=== PATIENT | male | born 1975 | race Caucasian/White ===

== ENCOUNTER 2023-09-28 15:17 | Emergency (ER) | payer BC, OTHER, SELFPAY ==
[2023-09-28 15:39] VITALS: BP 141/86; PULSE 67; RESP 16; TEMP 36.5; O2SAT 98
--- NOTE | 2023-09-28 16:26 | ED.GENADULT ---
HPI - General Adult General Chief complaint: Urogenital-Male Stated complaint: uti symptoms Time Seen by Provider: 09/28/23 15:46 Source: patient and RN notes reviewed Mode of arrival: ambulatory Limitations: no limitations History of Present Illness HPI narrative: Patient presents today complaining of 5 day history of a lower abdominal cramping, urinary frequency, bilateral flank pain, decreased appetite, pain when he starts and stops his urine stream. He also reported, pins and needles in his penis to the nurse today. Patient states he injured his back a few weeks ago(reports he has an old injury) and treated it with some Robaxin he had at home. Thought that this pain was just lingering, but reports it started to radiate to his lower abdomen. Reports that he is having trouble getting comfortable when he lays down at night as well. Denies fever, nausea or vomiting. Related Data Home Medications Medication Instructions Recorded Confirmed aspirin 81 mg tablet,delayed 81 mg PO DAILY 09/28/23 09/28/23 release celecoxib 200 mg capsule 200 mg PO DAILY 09/28/23 09/28/23 famotidine 20 mg tablet 20 mg PO DAILY 09/28/23 09/28/23 magnesium oxide 400 mg (241.3 mg 400 mg PO AC 09/28/23 09/28/23 magnesium) tablet metoprolol succinate 25 mg 25 mg PO AC 09/28/23 09/28/23 tablet,extended release 24 hr pantoprazole 20 mg tablet,delayed 20 mg PO AC 09/28/23 09/28/23 release Allergies Allergy/AdvReac Type Severity Reaction Status Date / Time azithromycin AdvReac Diarrhea Verified 09/28/23 15:49 Review of Systems Review of Systems: CONSTITUTIONAL: Denies body aches, fever, chills, or sweats. EYES: Denies visual changes, redness, or discharge. ENT: Denies rhinorrhea, congestion, sore throat, or otalgia. CARDIOVASCULAR: Denies chest pain, palpitations, or edema. RESPIRATORY: Denies cough or dyspnea. GASTROINTESTINAL: Denies nausea, vomiting, or diarrhea.+ lower abdominal pain, decreased appetite GENITOURINARY: Denies dysuria or hematuria.+ frequency, pain starting and stopping a urine stream, flank pain SKIN: Denies rash, itching, or wounds. MUSCULOSKELETAL: Denies back pain, joint pain, or myalgia. NEUROLOGIC: Denies headache, numbness, tingling, or weakness. PSYCH: Denies depression or anxiety. PMFSH Comments At time of signature, I have reviewed and agree with nursing past medical, surgical, social and family history unless otherwise noted. Please see nursing chart for further information. There is no relevant family history pertinent to the presenting complaint Exam Narrative: GENERAL: Well-appearing, well-nourished, and in no acute distress. HEAD: Normocephalic, atraumatic. EYES: EOMI. No redness or drainage. Conjunctivae normal. ENT: Mucous membranes pink and moist. NECK: Normal AROM. Supple. No lymphadenopathy. CHEST: No respiratory distress. Clear to auscultation. HEART: Regular rate and rhythm. No murmur appreciated. Normal peripheral pulses. ABDOMEN: Soft, nondistended, normal active bowel sounds. + rebound tenderness to the bilateral lower quadrants and suprapubic area. MUSCULOSKELETAL: No bony tenderness to the entire back. EXTREMITIES: Normal range of motion. No edema. SKIN: Warm, dry, no rash. Capillary refill normal. Normal skin turgor. NEURO: No focal deficits. Alert and oriented x3. Gait steady. PSYCH: Normal affect. No signs of depression or anxiety. Course Course Level of Care: Express Care Visit Vital Signs Vital signs: Vital Signs Temperature 97.7 F 09/28/23 15:39 Pulse Rate 67 09/28/23 15:39 Respiratory Rate 16 09/28/23 15:39 Blood Pressure 141/86 H 09/28/23 15:39 Pulse Oximetry 98 09/28/23 15:39 Oxygen Delivery Room Air 09/28/23 15:39 Temperature 97.7 F 09/28/23 15:39 Pulse Rate 67 09/28/23 15:39 Respiratory Rate 16 09/28/23 15:39 Blood Pressure 141/86 H 09/28/23 15:39 Pulse Oximetry 98 09/28/23 15:39 Oxygen Delivery Room Air
== END 2023-09-28 16:42 | disposition short-term general hospital (02) ==
PROVIDERS: Emergency Provider Nurse Practitioner
DX: R35.0 Frequency of micturition (principal); R10.814 Left lower quadrant abdominal tenderness; R10.823 Right lower quadrant rebound abdominal tenderness; Z79.82 Long term (current) use of aspirin; E78.00 Pure hypercholesterolemia, unspecified; I10 Essential (primary) hypertension
CPT/HCPCS: 81003; 99202; G0463

== ENCOUNTER 2023-09-28 16:55 | Emergency (ER) | payer BC, OTHER, SELFPAY ==
[2023-09-28] VITALS (9 sets, daily range): BP systolic 135–152; BP diastolic 87–97; PULSE 72–75; RESP 16–18; TEMP 36.6; O2SAT 98–100
--- NOTE | ~2023-09-28 | XR_ITS ---
EXAMINATION: XR abdomen/kub 1V DATE: 09/28/2023 17:39 INDICATION: Left flank pain. TECHNIQUE: A supine view of the abdomen on 2 radiographs was obtained. COMPARISON: CT abdomen and pelvis 09/28/2023 FINDINGS: There are no dilated loops of bowel. There is no visible urolithiasis. There are phlebolith s in left pelvis. IMPRESSION: 1. No visible urolithiasis. Reviewed, dictated and finalized at location E. TOIR SUPERVISOR IMPRESSION: 1. No visible urolithiasis.
--- NOTE | ~2023-09-28 | CT_ITS ---
EXAMINATION: CT abdomen pelvis wo con DATE: 09/28/2023 17:33 INDICATION: Left flank pain. TECHNIQUE: Computed tomography (CT) of the abdomen and pelvis was performed without intravenous contr ast. Automated exposure control and iterative reconstruction technique were employed. The dose-length product was 1364.02 mGy-cm. COMPARISON: None. FINDINGS: The visualized portions of the lung bases demonstrate mild atelectasis. No pleural effusion . The heart size is normal. No pericardial effusion. There is diffuse hepatic steatosis. The gallblad akira, spleen, pancreas, and adrenal glands are normal. There is a 2 mm stone in right kidney. There is a 2 mm stone in left kidney. There is a right inguinal hernia containing fat. The prostate is mildly enlarged. There are no dilated loops of bowel. The appendix is not visualized. There are no patholog ically enlarged lymph nodes. There is no free intraperitoneal fluid. There is mild thoracic spondylos is. There is severe lower lumbar spondylosis. IMPRESSION: 1. Small bilateral nonobstructing kidney stones. 2. Right inguinal hernia containing fat. 3. Diffuse hepatic steatosis. Reviewed, dictated and finalized at location E. S BRAKE OPERATOR
[2023-09-28 17:50] LABS: Appearance Urine Clear (Clear); Bilirubin Urine Negative (Negative); Blood Urine Negative (Negative); Color Urine Yellow (Yellow); Glucose Urine UA Negative (Negative); Ketones Urine Negative (Negative); Leukocyte Esterase Ur Negative LEU/UL (Negative); Nitrate Urine Negative (Negative); Protein Urine Negative (Negative); Specific Grav Ur 1.007 (1.001-1.035); Urobilinogen Urine 0.2 mg/dL (<2.0); pH Urine 6.5 (5.0-9.0)
[2023-09-28] MEDS: LACTATED RINGERS 1,000 ML 999 ML IV CONT (17:50)
--- NOTE | 2023-09-28 17:54 | ED.ABDPAIN ---
HPI - Abdominal Pain General Chief Complaint: Abdominal Pain Stated Complaint: abd pain, flank pain Time Seen by Provider: 09/28/23 17:09 Source: patient Mode of arrival: ambulatory Limitations: no limitations History of Present Illness HPI narrative: 48 year old male presents today with complaints of left flank pain for a couple weeks but worse over the last 5 days. Also with increased urination. Feels like he is not emptying his bladder. Denies fever, body aches but does endorse rare chills. Is having some pain to the penile region but denies drainage or risk of STI. Does have a hx of back issues taking celebrex daily. Has tried ibuprofen on top of his celebrex for the discomfort which he rates about a 2-3/10. Related Data Home Medications Medication Instructions Recorded Confirmed aspirin 81 mg tablet,delayed 81 mg PO DAILY 09/28/23 09/28/23 release celecoxib 200 mg capsule 200 mg PO DAILY 09/28/23 09/28/23 famotidine 20 mg tablet 20 mg PO DAILY 09/28/23 09/28/23 magnesium oxide 400 mg (241.3 mg 400 mg PO AC 09/28/23 09/28/23 magnesium) tablet metoprolol succinate 25 mg 25 mg PO AC 09/28/23 09/28/23 tablet,extended release 24 hr pantoprazole 20 mg tablet,delayed 20 mg PO AC 09/28/23 09/28/23 release Allergies Allergy/AdvReac Type Severity Reaction Status Date / Time azithromycin AdvReac Diarrhea Verified 09/28/23 15:49 Review of Systems Review of Systems: All systems reviewed & are unremarkable except as noted in HPI and below Exam Const: General: cooperative, healthy appearing, comfortable, no acute distress and well developed Orientation/consciousness: patient oriented x3 HENMT: Head: normal to inspection Eyes: General: appearance normal, both eyes and all related structures Resp: Effort & Inspection: normal respiratory effort and able to speak in complete sentences Auscultation: clear to auscultation bilaterally Cardio: Rate: regular rate Rhythm: regular rhythm Heart sounds: S1 normal heart sound present and S2 normal heart sound present Back/Spine/Pelvis: Back: no CVA tenderness Cervical Spine: normal cervical lordosis Thoracic/Lumbar Spine: thoracic and lumbar spine normal to inspection and paraspinal muscle tenderness on the left in the mid lumbar Skin: General skin exam: normal color Neuro: General: patient oriented x3 Course Vital Signs Vital signs: Vital Signs Temperature 97.9 F 09/28/23 16:58 Pulse Rate 75 09/28/23 16:58 Respiratory Rate 16 09/28/23 16:58 Blood Pressure 143/97 H 09/28/23 16:58 Pulse Oximetry 99 09/28/23 16:58 Oxygen Delivery Room Air 09/28/23 16:58 Temperature 97.9 F 09/28/23 16:58 Pulse Rate 75 09/28/23 18:32 Respiratory Rate 18 09/28/23 18:32 Blood Pressure 152/94 H 09/28/23 18:32 Pulse Oximetry 100 09/28/23 18:32 Oxygen Delivery Room Air 09/28/23 16:58 MDM - Abdominal Pain MDM Narrative Medical decision making narrative: 48 year old male HPI as noted. Differentials as below. Ct abdomen shows non obstructing stones, Right inguinal hernia, mildly enlarged prostate, thoracic and lumbar spondylosis. suspect pain is from either the spondylosis or from back spasms. PVR 48. Plan follow up with primary for further management. Patient aware and agrees with plan of care at this time but still is concerned due to not feeling that this pain is different. Went through imaging and labs and reviewed with patient that at this time there is no emergent or acute findings for me to treat. he has robaxin at home and pain is currently tolerable. Differential Diagnosis Differential diagnosis: Likely calculus of kidney, constipation and other (muscle strain, back pain) Lab Data 09/28/23 17:43 09/28/23 17:43 Labs: Lab Results 09/28/23 09/28/23 Range/Units 17:42 17:43 WBC 9.4 (4.5-10.0) K/mm3 RBC 5.01 (4.6-6.20) M/mm3 Hgb 15.0 (14.0-18.0) g/dL Hct 44.6 (42.0-52.0) %
[2023-09-28 17:57] LABS: Add Urine Microscopic? NO
[2023-09-28 17:58] LABS: Basophils Absolute Auto 0.1 K/mm3 (0.0-0.1); Basophils Percent Auto 0.5 % (0.2-1.2); Eosinophils Absolute Auto 0.3 K/mm3 (0-0.3); Eosinophils Percent Auto 2.8 % (0-4.4); Hematocrit 44.6 % (42.0-52.0); Immature Granulocyte Absolute 0.05 K/mm3 (0.00-0.031); Immature Granulocyte Percent A 0.5 % (0-0.5); Lymphocytes Absolute Auto 2.38 K/mm3 (0.9-3.2); Lymphocytes Percent Auto 25.4 % (18.3-44.2); Mean Corpuscular HGB Conc 33.6 g/dl (32-36); Mean Corpuscular Hemoglobin 29.9 pg (26-34); Mean Platelet Volume 9.6 fl (7.4-10.4); Monocytes Absolute Auto 0.9 K/mm3 (0.1-0.6); Monocytes Percent Auto 9.1 % (2.6-8.5); Neutrophils Absolute Auto 5.8 K/mm3 (1.3-6.7); Neutrophils Percent Auto 61.7 % (45.5-73.1); Platelet Count Result 243 k/mm3 (150-375); Red Blood Count 5.01 M/mm3 (4.6-6.20); Red Cell Distribution Width 12.7 % (11.5-14.5); White Blood Count 9.4 K/mm3 (4.5-10.0)
[2023-09-28 18:13] LABS: Alanine Aminotransferase 23 U/L (6-50); Albumin Level 4.8 g/dL (3.5-5.1); Alkaline Phosphatase 72 U/L (38-126); Anion Gap 9 mmol/L (8-16); Aspartate Amino Transferase 34 U/L (17-59); Bilirubin,Total 0.5 mg/dL (0.2-1.3); Blood Urea Nitrogen 16 mg/dL (9-20); Calcium 9.4 mg/dL (8.4-10.2); Carbon Dioxide 28 mmol/L (22-30); Chloride 103 mmol/L (98-107); Estimated CRCL calculation 110 ml/min; Estimated Glomerular Filt Rate > 60; Glucose 84 mg/dL (65-110); Potassium 4.3 mmol/L (3.4-5.0); Sodium 140 mmol/L (137-145)
== END 2023-09-28 19:54 | disposition home or self-care (01) ==
PROVIDERS: Emergency Provider Nurse Practitioner Family
DX: N20.0 Calculus of kidney (principal); M47.816 Spondylosis without myelopathy or radiculopathy, lumbar region; R35.0 Frequency of micturition; Z79.82 Long term (current) use of aspirin; Z79.899 Other long term (current) drug therapy
CPT/HCPCS: 36415; 74018; 74176; 80053; 81003; 85025; 96360; 99284; J7120

== ENCOUNTER 2023-12-28 00:23 | Day surgery (SDC) | payer BC, OTHER, SELFPAY ==
[2023-11-20 10:44] VITALS: BMI 34.4
[2023-12-19 13:37] VITALS: BMI 34.4
--- NOTE | 2023-12-26 11:50 | SUR.PREOP ---
Patient called regarding upcoming procedure. Reviewed preop instructions, new appointment times, and procedure prep.
[2023-12-28 08:57] VITALS: BP 138/89; PULSE 79; RESP 20; TEMP 35.3; O2SAT 99
[2023-12-28] MEDS: LACTATED RINGERS 1,000 ML 150 ML IV CONT (09:06)
--- NOTE | 2023-12-28 09:12 | WPDANESEPPF ---
Anes - Initial Pre Proc Eval Procedure: Operation Date: 12/28/23 10:00 Proposed Procedures p Screening Colonoscopy - Geovany Joseph MD Date/Time: 12/28/23 09:12 Surgeon: Geovany Joseph MD Pre Op Diagnosis: neoplasm screening Patient Data Age: 48 Gender: M Height: 1.78 m Weight: 109 kg Last Vital Signs Temp 95.5 F L 12/28/23 08:57 Pulse 79 12/28/23 08:57 Resp 20 12/28/23 08:57 BP 138/89 12/28/23 08:57 Pulse Ox 99 12/28/23 08:57 O2 Del Method Room Air 12/28/23 08:57 Allergies Allergy/AdvReac Type Severity Reaction Status Date / Time azithromycin AdvReac Diarrhea Verified 12/28/23 08:56 Home Medications Medication Instructions Recorded Confirmed Type aspirin 81 mg tablet,delayed 81 mg PO DAILY 09/28/23 11/20/23 History release celecoxib 200 mg capsule 100 mg PO BID 09/28/23 11/20/23 History famotidine 20 mg tablet 20 mg PO BID 09/28/23 11/20/23 History magnesium oxide 400 mg (241.3 mg 400 mg PO DAILY 09/28/23 11/20/23 History magnesium) tablet metoprolol succinate 25 mg 25 mg PO DAILY 09/28/23 11/20/23 History tablet,extended release 24 hr pantoprazole 20 mg tablet,delayed 20 mg PO DAILY 09/28/23 11/20/23 History release Patient hx anesthesia problems: none Family hx anesthesia problems: none Results Review: All pre-operative results and documents have been reviewed as part of the pre-operative evaluation. [facility] Social History Social History Smoking status: Never smoker Substance use type: does not use Living arrangements: with family Spiritual care concerns: No Anes - Eval Final PreProcedure Day of Procedure 12/28/23 09:12 Patient weight: normal Heart: regular rate and rhythm Lungs: clear to auscultation Airway: Mallampati scale class II Neurological: alert and oriented Last oral intake: >/= 8 hours ASA classification: III Emergent: no Anesthetic plan: proceed Anesthesia type and monitoring: general GIVS and standard monitoring Results Review: All pre-operative results and documents have been reviewed as part of the pre-operative evaluation. Informed Consent: The patient's anesthetic plan and its attendant risks and benefits were discussed with the patient/family/POA. Questions were solicited and answers provided to the satisfaction of the patient/family/POA.
--- NOTE | 2023-12-28 09:25 | PM.HPGS ---
History of Present Illness History of Present Illness Consent: Risks, benefits, and alternatives have been discussed and questions answered. Patient agrees to proceed with procedure. Chief complaint: neoplasm screening Narrative: Edwin Harvey is a 48 year old male here for first screening colonoscopy, also diagnosed with IBS and loose stools Review of Systems Constitutional: Constitutional: Denies headache(s) and Denies weakness Eyes: Eyes: Denies blurry vision ENT: Reports Normal hearing present, Denies headache(s) and Denies neck pain Cardiovascular: Cardiovascular: Denies chest pain and Denies dyspnea Respiratory: Respiratory: Denies dyspnea Gastrointestinal: Gastrointestinal: Reports no additional gastrointestinal complaints Genitourinary: Genitourinary: Denies dysuria Musculoskeletal: Musculoskeletal: Denies neck pain Integumentary/Breasts: Skin/Breast: Denies dry skin Neurologic: Reports Normal hearing present, Denies headache(s) and Denies weakness Psychiatric: Psychiatric: Denies anxiety Endocrine: Endocrine: Denies change in body appearance Hematologic/Lymphatic: Hematologic/Lymphatic: Denies easy bleeding Allergic/Immunologic: Allergic/Immunologic: Denies urticaria PMF Past Medical History Medical History (Updated 12/28/23 @ 09:26 by Geovany Joseph MD) Colon cancer screening IBS (irritable bowel syndrome) Social History Social History Smoking status: Never smoker Substance use type: does not use Living arrangements: with family Spiritual care concerns: No Meds Home Medications and Allergies Home Medications Medication Instructions Recorded Confirmed Type aspirin 81 mg tablet,delayed 81 mg PO DAILY 09/28/23 11/20/23 History release celecoxib 200 mg capsule 100 mg PO BID 09/28/23 11/20/23 History famotidine 20 mg tablet 20 mg PO BID 09/28/23 11/20/23 History magnesium oxide 400 mg (241.3 mg 400 mg PO DAILY 09/28/23 11/20/23 History magnesium) tablet metoprolol succinate 25 mg 25 mg PO DAILY 09/28/23 11/20/23 History tablet,extended release 24 hr pantoprazole 20 mg tablet,delayed 20 mg PO DAILY 09/28/23 11/20/23 History release Allergies Allergy/AdvReac Type Severity Reaction Status Date / Time azithromycin AdvReac Diarrhea Verified 12/28/23 08:56 Vital Signs Vital Signs - 24 hr 12/28/23 08:57 Temperature 95.5 F L Pulse Rate 79 Respiratory Rate 20 Blood Pressure 138/89 Pulse Oximetry 99 Oxygen Delivery Room Air Exam Const: General: comfortable and no acute distress HENMT: Face/Nose/Sinus: Normal nares present Eyes: General: appearance normal, both eyes and all related structures Neck: Neck: no JVD Resp: Auscultation: clear to auscultation bilaterally Cardio: Rate: regular rate Rhythm: regular rhythm GI: Inspection: non-distended GI Palp: Yes Soft to palpation Skin: General skin exam: normal color Neuro: General: gait normal Speech: normal speech Extrem: General: normal to inspection Psych: Mental Status: mental status grossly normal Assessment and Plan Assessment and plan (1) Colon cancer screening: Code(s): Z12.11 - Encounter for screening for malignant neoplasm of colon Status: Acute Assessment and Plan: colonoscopy (2) IBS (irritable bowel syndrome): Code(s): K58.9 - Irritable bowel syndrome without diarrhea Status: Acute
[2023-12-28 09:46] VITALS: BP 137/82; PULSE 71; RESP 21; O2SAT 96
[2023-12-28 09:56] VITALS: BP 122/78; PULSE 73; RESP 20; O2SAT 100
[2023-12-28 10:06] VITALS: BP 114/80; PULSE 64; RESP 22; O2SAT 97
== END 2023-12-28 10:25 | disposition home or self-care (01) ==
PROVIDERS: PCP Family Medicine; Visit Provider Internal Medicine Gastroenterology
PROC: 0DJD8ZZ Inspection of Lower Intestinal Tract, Via Natural or Artificial Opening Endoscopic (ICD-10-PCS; CPT 45378; principal; 2023-12-28 10:00)
DX: Z12.11 Encounter for screening for malignant neoplasm of colon (principal); K64.8 Other hemorrhoids; K58.9 Irritable bowel syndrome, unspecified; Z79.82 Long term (current) use of aspirin
CPT/HCPCS: 45380; 88305; J2704; J7120

== ENCOUNTER 2024-11-03 16:36 | Outpatient (CLI) | payer BC, OTHER, SELFPAY ==
--- NOTE | ~2024-11-03 | CT_ITS ---
EXAMINATION: CT sinus wo con DATE: 11/03/2024 16:50 INDICATION: Unspecified eustachian tube disorder. TECHNIQUE: Computed tomography (CT) of the paranasal sinuses was performed without intravenous contra st. Iterative reconstruction technique was employed. The dose-length product was 303.09 mGy-cm. COMPARISON: None FINDINGS: There is mild mucosal thickening in left frontal sinus and the bilateral ethmoid sinuses. T he sphenoid sinuses are clear. There is mild mucosal thickening in the maxillary sinuses. The nasal s eptum is at the midline. There is a Belle cell on the right. There is occlusion of left ostiomeatal unit at the hiatus semilunaris. There is a patent accessory left maxillary ostium. There is a right m astoid effusion. The nasopharynx is unremarkable. IMPRESSION: 1. Mild mucosal thickening in the paranasal sinuses. Reviewed, dictated and finalized at location A. ITURE UPHOLSTERER
== END 2024-11-03 16:37 | disposition home or self-care (01) ==
LOC: ANHIMG 16:38
PROVIDERS: PCP Family Medicine; Visit Provider Otolaryngology
DX: J34.89 Other specified disorders of nose and nasal sinuses (principal); H69.90 Unspecified Eustachian tube disorder, unspecified ear; H90.11 Conductive hearing loss, unilateral, right ear, with unrestricted hearing on the contralateral side; H65.91 Unspecified nonsuppurative otitis media, right ear; J32.0 Chronic maxillary sinusitis; J32.2 Chronic ethmoidal sinusitis
CPT/HCPCS: 70486

== ENCOUNTER 2024-11-03 17:12 | Emergency (ER) | payer BC, OTHER, SELFPAY ==
[2024-11-03 18:10] VITALS: BP 142/92; PULSE 64; RESP 18; TEMP 36.7
[2024-11-03 18:47] LABS: Basophils Absolute Auto 0.1 K/mm3 (0.0-0.1); Basophils Percent Auto 0.7 % (0.2-1.2); Eosinophils Absolute Auto 0.2 K/mm3 (0-0.3); Eosinophils Percent Auto 1.4 % (0-4.4); Hematocrit 44.8 % (42.0-52.0); Hemoglobin 14.9 g/dL (14.0-18.0); Immature Granulocyte Absolute 0.16 K/mm3 (0.00-0.031); Immature Granulocyte Percent A 1.2 % (0-0.5); Lymphocytes Absolute Auto 2.97 K/mm3 (0.9-3.2); Lymphocytes Percent Auto 22.5 % (18.3-44.2); Mean Corpuscular HGB Conc 33.3 g/dl (32-36); Mean Corpuscular Hemoglobin 29.9 pg (26-34); Mean Corpuscular Volume 89.8 fl (80-100); Monocytes Absolute Auto 1.3 K/mm3 (0.1-0.6); Monocytes Percent Auto 9.8 % (2.6-8.5); Neutrophils Absolute Auto 8.5 K/mm3 (1.3-6.7); Neutrophils Percent Auto 64.4 % (45.5-73.1); Platelet Count Result 289 k/mm3 (150-375); Red Blood Count 4.99 M/mm3 (4.6-6.20); Red Cell Distribution Width 12.6 % (11.5-14.5); White Blood Count 13.2 K/mm3 (4.5-10.0)
[2024-11-03 19:00] LABS: Anion Gap 7 mmol/L (4-12); Blood Urea Nitrogen 28 mg/dL (9-20); Calcium 9.9 mg/dL (8.4-10.2); Carbon Dioxide 29 mmol/L (22-30); Chloride 103 mmol/L (98-107); Estimated CRCL calculation 99 ml/min; Estimated Glomerular Filt Rate > 60; Glucose 81 mg/dL (65-110); Potassium 4.4 mmol/L (3.4-5.0); Sodium 139 mmol/L (137-145)
[2024-11-03 19:03] LABS: INR 1.1; Prothrombin Time 14.8 Seconds (11.1-14.7)
[2024-11-03 19:09] LABS: D Dimer < 0.27 ug/mL (<0.48)
[2024-11-03 19:19] VITALS: BP 142/99; PULSE 73; RESP 15; O2SAT 97
--- NOTE | 2024-11-03 19:29 | ED_ITS ---
HPI - Extremity Problem General Chief complaint: Extremity Problem,Nontraumatic Stated complaint: L LEG PAIN CONCERNED ABOUT BLOOD CLOT Time Seen by Provider: 11/03/24 18:50 History of Present Illness HPI Narrative: Patient is a 49-year-old male who presents ER with pain in left calf. Located over the lateral aspect of the proximal left calf. No swelling. No redness. Recently diagnosed with sciatica. Has been on anti-inflammatories muscle relaxers. No chest pain shortness of breath. Raise concerns for DVT for him known to be evaluated. No history DVT. Related Data Home Medications ?Medication ?Instructions ?Recorded ?Confirmed ?Last Taken ?Type aspirin 81 mg tablet,delayed 81 mg PO DAILY 09/28/23 10/20/24 12/26/23 History release celecoxib 200 mg capsule 100 mg PO BID 09/28/23 10/20/24 12/26/23 History magnesium oxide 400 mg (241.3 mg 400 mg PO DAILY 09/28/23 10/20/24 12/26/23 History magnesium) tablet metoprolol succinate 25 mg 25 mg PO DAILY 09/28/23 10/20/24 12/26/23 History tablet,extended release 24 hr fenofibrate 54 mg tablet 54 mg PO DAILY 06/17/24 10/20/24 Unknown History esomeprazole magnesium 20 mg 20 mg PO DAILY 10/20/24 10/20/24 Unknown History capsule,delayed release (Nexium) Allergies Allergy/AdvReac Type Severity Reaction Status Date / Time azithromycin AdvReac Diarrhea Verified 11/03/24 17:13 Review of Systems 2 Review of Systems: All systems reviewed & are unremarkable except as noted in HPI and below Constitutional: Constitutional: Reports no additional constitutional complaints ENT: Reports system reviewed and no additional complaints, except as documented Cardiovascular: Cardiovascular: Reports no additional cardiovascular complaints Respiratory: Respiratory: Reports no additional respiratory complaints [facility] Past Medical History Medical History Colon cancer screening IBS (irritable bowel syndrome) Social History Social History Smoking status: Never smoker Alcohol intake: never Substance use: never Substance use type: does not use Do You Feel Safe in your Home?: Yes Lack of Transportation: No Lack of Food: Never True Current Housing: I Have Housing Concerned About Future Housing: No Difficulty Paying Gas/Electric Bills: No Difficulty Paying for Meds: No Currently Unemployed: No Education: Bachelor's Degree Difficulty w/ Childcare or Family Care: No Living arrangements: with family Spiritual care concerns: No Exam 2 Narrative: GENERAL: Well-appearing, well-nourished, and in no acute distress. HEAD: Normocephalic, atraumatic. ENT: Mucous membranes moist. CHEST: Clear to auscultation. No respiratory distress. HEART: Regular rate and rhythm. Normal peripheral pulses. EXTREMITIES: Normal range of motion. No edema. Negative homans sign. SKIN: Warm, dry, no rash. NEURO: Alert and oriented x3. PSYCH: Normal mood and affect. Course Course Emergency Course: Negative Hussein sign, no leg swelling, D-dimer negative, discomfort felt to be musculoskeletal in nature and not a DVT. Vital Signs Vital signs: Vital Signs Temperature 98.0 F 11/03/24 18:10 Pulse Rate 64 11/03/24 18:10 Respiratory Rate 18 11/03/24 18:10 Blood Pressure 142/92 H 11/03/24 18:10 Oxygen Delivery Room Air 11/03/24 18:10 Temperature 98.0 F 11/03/24 18:10 Pulse Rate 73 11/03/24 19:19 Respiratory Rate 15 11/03/24 19:19 Blood Pressure 142/99 H 11/03/24 19:19 Pulse Oximetry 97 11/03/24 19:19 Oxygen Delivery Room Air 11/03/24 18:10 MDM - Extremity (Nontraumatic) Lab Data 11/03/24 18:38 11/03/24 18:38 Labs: Lab Results 11/03/24 Range/Units 18:38 WBC 13.2 H (4.5-10.0) K/mm3 RBC 4.99 (4.6-6.20) M/mm3 Hgb 14.9 (14.0-18.0) g/dL Hct 44.8 (42.0-52.0) % MCV 89.8 (80-100) fl MCH 29.9 (26-34) pg MCHC 33.3 (32-36) g/dl RDW 12.6 (11.5-14.5) % Plt Count 289 (150-375) k/mm3 MPV 9.0 (7.4-10.4) fl Immature Gran % (Auto) 1.2 H (0-0.5) % Neut % (Auto) 64.4 (45.5-73.1) % Lymph % (Auto) 22.5 (18.3-44.2) % [place] % (Auto) 9.8 H (2.6-8.5) % Eos % (Auto) 1.4 (0-4.4) % Baso % (Auto) 0.7 (0.2-1.2) % Lymph # (Auto) 2.97 (0.9-3.2) K/mm3 [place] # (Auto) 1.3 H (0.1-0.6) K/mm3 Eos # (Auto) 0.2 (0-0.3) K/mm3 Baso # (Auto) 0.1 (0.0-0.1) K/mm3 Abs Immat Gran (auto) 0.16 H (0.00-0.031) K/mm3 Absolute Neuts (auto) 8.5 H (1.3-6.7) K/mm3 Absolute Nucleated RBC 0.000 (0.0-0.012) K/mm3 Nucleated RBC % 0.0 (0.0-0.2) % PT 14.8 H (11.1-14.7) Seconds INR 1.1 APTT 27.0 (22.3-36.8) Seconds D-Dimer < 0.27 (<0.48) ug/mL Sodium 139 (137-145) mmol/L Potassium 4.4 (3.4-5.0) mmol/L Chloride 103 (98-107) mmol/L Carbon Dioxide 29 (22-30) mmol/L Anion Gap 7 (4-12) mmol/L BUN 28 H D (9-20) mg/dL Creatinine 1.00 (0.7-1.3) mg/dL Estim Creat Clear Calc 99 ml/min Estimated GFR > 60 (59 - ) Glucose 81 (65-110) mg/dL Calcium 9.9 (8.4-10.2) mg/dL Discharge Plan Discharge Clinical Impression: Calf pain Patient Disposition: Home, Self-Care Condition: Stable Instructions: Leg Cramps (ED) Additional Instructions: Return ER if you have chest pain with shortness of breath, you cannot keep down food water, he lose consciousness, have additional concerns. Patient Language: Serbian Prescriptions: No Action celecoxib 200 mg capsule 100 mg PO BID aspirin 81 mg tablet,delayed release (DR/EC) 81 mg PO DAILY magnesium oxide 400 mg (241.3 mg magnesium) tablet 400 mg PO DAILY metoprolol succinate 25 mg tablet extended release 24 hr 25 mg PO DAILY fenofibrate 54 mg tablet 54 mg PO DAILY azelastine 137 mcg (0.1 %) spray,non-aerosol 137 mcg intranasal . q.h.s. Qty: 30 3RF Rx Instructions: administer into each nostril 1 or 2 sprays q.h.s. at bedtime esomeprazole magnesium [Nexium] 20 mg capsule,delayed release(DR/EC) 20 mg PO DAILY doxycycline hyclate 100 mg tablet 100 mg PO BID Qty: 20 0RF Rx Instructions: take 1 tablet b.i.d. Follow-up/Referrals: Matti,MD Cruz [Primary Care Provider] - 1 Week
[2024-11-03 20:56] VITALS: BP 128/98; PULSE 79; RESP 19; O2SAT 100
== END 2024-11-03 20:58 | disposition home or self-care (01) ==
LOC: ANHED 20:12
PROVIDERS: Nurse Practitioner Family; Emergency Provider Emergency Medicine; PCP Family Medicine
DX: M79.662 Pain in left lower leg (principal); K58.9 Irritable bowel syndrome, unspecified; Z79.82 Long term (current) use of aspirin
CPT/HCPCS: 36415; 80048; 85025; 85380; 85610; 85730; 99283

== ENCOUNTER 2025-08-06 11:06 | Outpatient (CLI) | payer BC, OTHER, SELFPAY ==
--- NOTE | 2025-08-06 11:11 | EST_ITS ---
Patient Info Name: Edwin Harvey Age: 50 years : 1975 Gender: Male Ht: 70 in Wt: 245 lbs BSA: 2.38 m2 Exam Date: 08/06/2025 11:11 AM Patient Status: O Admit Date: 08/06/2025 Exam Type: CA stress test treadmill An exercise stress test was performed. Staff Attending Provider: Dwayne Pacheco DO Exercise Technologist: Andra Best Exercise Physician: Dwayne Pacheco DO Summary 1. 1. Negative Favian exercise stress test for ischemic ST changes by ECG criteria. 2. 2. Good functional capacity, achieving 10.9 METs of workload. 3. 3. Appropriate HR response to exercise. 4. 4. Appropriate HR recovery at 1 minute post exercise. 5. 5. No imaging with stress testing. 6. 6. Patient informed of the above results. Protocol: Favian Stress ECG Details Stage: REST Duration (min): 0 min : 59 sec Speed (mph): 0.0 Grade (%): 0 HR (bpm): 65 SBP (mmHg): 129 DBP (mmHg): 76 METS: --- Stage: REST Duration (min): 5 min : 14 sec Speed (mph): 0.0 Grade (%): 0 HR (bpm): 79 SBP (mmHg): 129 DBP (mmHg): 76 METS: --- Stage: STAGE 1 Duration (min): 1 min : 0 sec Speed (mph): 1.7 Grade (%): 10 HR (bpm): 99 SBP (mmHg): 129 DBP (mmHg): 76 METS: --- Stage: STAGE 1 Duration (min): 2 min : 0 sec Speed (mph): 1.7 Grade (%): 10 HR (bpm): 103 SBP (mmHg): 129 DBP (mmHg): 76 METS: --- Stage: STAGE 1 Duration (min): 3 min : 0 sec Speed (mph): 1.7 Grade (%): 10 HR (bpm): 103 SBP (mmHg): 163 DBP (mmHg): 67 METS: --- Stage: STAGE 2 Duration (min): 1 min : 0 sec Speed (mph): 2.5 Grade (%): 12 HR (bpm): 116 SBP (mmHg): 163 DBP (mmHg): 67 METS: --- Stage: STAGE 2 Duration (min): 2 min : 0 sec Speed (mph): 2.5 Grade (%): 12 HR (bpm): 119 SBP (mmHg): 160 DBP (mmHg): 69 METS: --- Stage: STAGE 2 Duration (min): 3 min : 0 sec Speed (mph): 2.5 Grade (%): 12 HR (bpm): 120 SBP (mmHg): 160 DBP (mmHg): 69 METS: --- Stage: STAGE 3 Duration (min): 1 min : 0 sec Speed (mph): 3.4 Grade (%): 14 HR (bpm): 129 SBP (mmHg): 173 DBP (mmHg): 73 METS: --- Stage: STAGE 3 Duration (min): 2 min : 0 sec Speed (mph): 3.4 Grade (%): 14 HR (bpm): 136 SBP (mmHg): 173 DBP (mmHg): 73 METS: --- Stage: STAGE 3 Duration (min): 3 min : 0 sec Speed (mph): 3.4 Grade (%): 14 HR (bpm): 143 SBP (mmHg): 195 DBP (mmHg): 78 METS: --- Stage: STAGE 4 Duration (min): 0 min : 25 sec Speed (mph): 4.2 Grade (%): 16 HR (bpm): 147 SBP (mmHg): 195 DBP (mmHg): 78 METS: --- Stage: RECOVERY Duration (min): 0 min : 34 sec Speed (mph): 0.0 Grade (%): 0 HR (bpm): 138 SBP (mmHg): 195 DBP (mmHg): 78 METS: --- Stage: RECOVERY Duration (min): 1 min : 34 sec Speed (mph): 0.0 Grade (%): 0 HR (bpm): 106 SBP (mmHg): 174 DBP (mmHg): 82 METS: --- Stage: RECOVERY Duration (min): 2 min : 34 sec Speed (mph): 0.0 Grade (%): 0 HR (bpm): 93 SBP (mmHg): 174 DBP (mmHg): 82 METS: --- Stage: RECOVERY Duration (min): 3 min : 34 sec Speed (mph): 0.0 Grade (%): 0 HR (bpm): 89 SBP (mmHg): 176 DBP (mmHg): 68 METS: --- Stage: RECOVERY Duration (min): 4 min : 34 sec Speed (mph): 0.0 Grade (%): 0 HR (bpm): 93 SBP (mmHg): 176 DBP (mmHg): 68 METS: --- Stage: RECOVERY Duration (min): 5 min : 34 sec Speed (mph): 0.0 Grade (%): 0 HR (bpm): 88 SBP (mmHg): 176 DBP (mmHg): 67 METS: --- Stage: RECOVERY Duration (min): 6 min : 34 sec Speed (mph): 0.0 Grade (%): 0 HR (bpm): 88 SBP (mmHg): 176 DBP (mmHg): 67 METS: --- Stage: RECOVERY Duration (min): 7 min : 34 sec Speed (mph): 0.0 Grade (%): 0 HR (bpm): 90 SBP (mmHg): 155 DBP (mmHg): 69 METS: --- Stage: RECOVERY Duration (min): 8 min : 34 sec Speed (mph): 0.0 Grade (%): 0 HR (bpm): 88 SBP (mmHg): 155 DBP (mmHg): 69 METS: --- Stage: RECOVERY Duration (min): 9 min : 34 sec Speed (mph): 0.0 Grade (%): 0 HR (bpm): 90 SBP (mmHg): 151 DBP (mmHg): 73 METS: --- Stage: RECOVERY Duration (min): 10 min : 34 sec Speed (mph): 0.0 Grade (%): 0 HR (bpm): 87 SBP (mmHg): 151 DBP (mmHg): 73 METS: --- Stage: RECOVERY Duration (min): 11 min : 34 sec Speed (mph): 0.0 Grade (%): 0 HR (bpm): 88 SBP (mmHg): 153 DBP (mmHg): 78 METS: --- Stage: RECOVERY Duration (min): 12 min : 34 sec Speed (mph): 0.0 Grade (%): 0 HR (bpm): 88 SBP (mmHg): 153 DBP (mmHg): 78 METS: --- Stage: RECOVERY Duration (min): 13 min : 34 sec Speed (mph): 0.0 Grade (%): 0 HR (bpm): 88 SBP (mmHg): 151 DBP (mmHg): 81 METS: --- Stage: RECOVERY Duration (min): 14 min : 34 sec Speed (mph): 0.0 Grade (%): 0 HR (bpm): 86 SBP (mmHg): 151 DBP (mmHg): 81 METS: --- Stage: RECOVERY Duration (min): 15 min : 34 sec Speed (mph): 0.0 Grade (%): 0 HR (bpm): 83 SBP (mmHg): 153 DBP (mmHg): 71 METS: --- Stage: RECOVERY Duration (min): 16 min : 34 sec Speed (mph): 0.0 Grade (%): 0 HR (bpm): 89 SBP (mmHg): 153 DBP (mmHg): 71 METS: --- Stage: RECOVERY Duration (min): 17 min : 34 sec Speed (mph): 0.0 Grade (%): 0 HR (bpm): 89 SBP (mmHg): 131 DBP (mmHg): 76 METS: --- Stage: RECOVERY Duration (min): 18 min : 34 sec Speed (mph): 0.0 Grade (%): 0 HR (bpm): 91 SBP (mmHg): 131 DBP (mmHg): 76 METS: --- Stage: RECOVERY Duration (min): 19 min : 34 sec Speed (mph): 0.0 Grade (%): 0 HR (bpm): 87 SBP (mmHg): 145 DBP (mmHg): 89 METS: --- Stage: RECOVERY Duration (min): 20 min : 34 sec Speed (mph): 0.0 Grade (%): 0 HR (bpm): 88 SBP (mmHg): 145 DBP (mmHg): 89 METS: --- Stage: RECOVERY Duration (min): 21 min : 34 sec Speed (mph): 0.0 Grade (%): 0 HR (bpm): 86 SBP (mmHg): 140 DBP (mmHg): 86 METS: --- Stage: RECOVERY Duration (min): 22 min : 34 sec Speed (mph): 0.0 Grade (%): 0 HR (bpm): 86 SBP (mmHg): 147 DBP (mmHg): 84 METS: --- Stage: RECOVERY Duration (min): 23 min : 34 sec Speed (mph): 0.0 Grade (%): 0 HR (bpm): 89 SBP (mmHg): 147 DBP (mmHg): 84 METS: --- Stage: RECOVERY Duration (min): 24 min : 34 sec Speed (mph): 0.0 Grade (%): 0 HR (bpm): 83 SBP (mmHg): 147 DBP (mmHg): 84 METS: --- Stage: RECOVERY Duration (min): 25 min : 34 sec Speed (mph): 0.0 Grade (%): 0 HR (bpm): 91 SBP (mmHg): 151 DBP (mmHg): 91 METS: --- Stage: RECOVERY Duration (min): 26 min : 34 sec Speed (mph): 0.0 Grade (%): 0 HR (bpm): 82 SBP (mmHg): 151 DBP (mmHg): 91 METS: --- Stage: RECOVERY Duration (min): 27 min : 14 sec Speed (mph): 0.0 Grade (%): 0 HR (bpm): 84 SBP (mmHg): 143 DBP (mmHg): 99 METS: --- Rest HR: 79 bpm Peak HR: 148 bpm Rest Sys BP: 129 mmHg Peak Sys BP: 195 mmHg Max Pred HR: 170 bpm % Max Pred HR: 87 % Target HR: 145 bpm Max RPP: 28,860 bpm*mmHg Murphy Score: 4 Termination Reason: Reached target heart rate or workload Cardiac Symptoms: Shortness of breath Max ST Seg Deviation: 1.10 mm Total Time: 9 min : 25 sec Rest Dunn BP: 76 mmHg Peak Dunn BP: 78 mmHg Angina Score: None Total METS: 10.9 Resting ECG Sinus rhythm. Stress ECG No ST changes. Arrhythmias None. Report Signatures
--- OUTSIDE RECORDS SUMMARY | 2025-08-06 11:41 | XMS_ITS | Clinical Summary ---
Author Organization [facility] Address [address] [place] [address] Care Team Providers Care Insulation Worker Apprentice Name Role Phone Sony Marcus Primary Care Provider Allergies Active Allergy Reactions Criticality Noted Date Comments Azithromycin Diarrhea,Vomiting Low 01/25/2021 Medications celecoxib (CeleBREX) 200 mg capsule daily Active metoprolol XL (TOPROL-XL) 25 mg extended release tablet daily Activ e esomeprazole DR (NexIUM) 20 mg capsule daily Active aspirin 325 mg enteric coated tablet every 6 (six) hours as needed Active multivitamin capsule Take 1 capsule by mouth daily Active omega-3 fatty acids-fish oil 300-400 mg capsule Take by mouth Active cholecalciferol (VITAMIN D-3) 5,000 unit capsule Take 5,000 Units by mouth daily Active albuterol HFA (PROVENTIL HFA,VENTOLIN HFA,PROAIR HFA) 90 mcg/actuation inhalerIndicati ons:Shortness of breath Inhale 2 puffs every 6 (six) hours as needed for wheezing Fill per patient's formulary 1 each 1 2 Active Active Problems Problem Noted Date Diagnosed Date Shortness of breath 09/18/2022 Assessment & Plan (11/07/2022 4:00 PM HAZARDOUS SUBSTANCES ENGINEER): Patient's PFT and chest x-ray were within normal limits. I have ordered a methacholine challenge. Patient was also ordered an albuterol inhaler to use on a p.r.n. basis and up to 4 times a day as needed for symptom control. Assessment & Plan (09/18/2022 4:02 PM CDT): The patient's senses dyspnea which causes him to try to take a deep breath. He has some increased dyspnea on exertion as well. I will check full PFTs and a chest x-ray and he will follow-up with me in 1 month. MARLENA (obstructive sleep apnea) 01/21/2021 Assessment & Plan (11/07/2022 4:00 PM HAZARDOUS SUBSTANCES ENGINEER): Patient will continue CPAP therapy at 10 cm water pressure. I have ordered a full set of supplies and sent office notes along with order. OPAL [place] Assessment & Plan (09/18/2022 4:02 PM CDT): The patient continues to benefit from CPAP at 10 cm water pressure. His DME supplier is [employer]. Assessment & Plan (07/13/2022 3:33 PM CDT): The patient did receive a new CPAP unit. I did ask him to call [employer] to have it programmed and to have a modem installed. He is benefiting from the CPAP unit at 10 cm water pressure. He will follow-up with me in 1 year. Assessment & Plan (2022 2:56 PM CDT): The patient will continue with CPAP therapy at 10 cm water pressure. The patient is compliant and benefitting from CPAP therapy. The patient received an order for new head gear that would fit his mask. [facility] [employer]. Assessment & Plan (01/25/2021 9:48 AM HAZARDOUS SUBSTANCES ENGINEER): The patient is currently compliant with CPAP at 10 cm water pressure and has no symptoms of daytime hypersomnia. He is in need of a new CPAP unit with heated humidifier and battery and supplies through [facility]. I will write a letter for him stating that it is my opinion that he is eligible for the upcoming appointment. He should not need the services of sleep physician over the next 6 months. He should follow-up with me in 1 year. Resolved Problems Problem Noted Date Diagnosed Date Resolved Date Hypersomnia 2022 11/07/2022 Assessment & Plan (09/18/2022 4:02 PM CDT): The patient states that his hypersomnia has improved with CPAP therapy. Assessment & Plan (07/13/2022 3:33 PM CDT): He is on no stimulants and currently does not have hypersomnia. Assessment & Plan (2022 2:54 PM CDT): The patient and I discussed lab work and medication therapy in the future. The patient was educated on the importance of sleep hygiene and a good night's sleep in order to decrease the hypersomnia during the day. The patient was reminded that wearing the CPAP machine at least 4 hours a night on 70% of the nights will help with the hypersomnia. The patient is compliant with CPAP therapy at this time. Family History Relation Name Status Comments Father Alive Mother Alive Social History Tobacco Use Types Packs/Day Years Used Date Smoking Tobacco: Never Smokeless Tobacco: Never Tobacco Cessation:Counseling Given: Not Answered AUDIT-C Answer Date Recorded Q1: How often do you have a drink containing alc ohol? Never 2022 Average Number of Drinks Not on file 022 Q3: How often do you have si x or more drinks on one occasion? Never 2022 Personal Safety Answer Date Recorded Getting School Help Needed Not on file 11/22 Sex and Gender Information Value Date Recorded Sex Assigned at Not on file Legal Sex Male 10:01 AM HAZARDOUS SUBSTANCES ENGINEER Gender Identity Not on file Sexual Orientation Not on file Obstetrics History Last Filed Vital Signs Vital Sign Reading Time Taken Comments Blood Pressure 120/68 11/07/2022 3:21 PM HAZARDOUS SUBSTANCES ENGINEER Pulse 86 11/07/2022 3:21 PM HAZARDOUS SUBSTANCES ENGINEER Temperature 36.4 C (97.6 F) 11/07/2022 3:21 PM HAZARDOUS SUBSTANCES ENGINEER Respiratory Rate 18 11/07/2022 3:21 PM HAZARDOUS SUBSTANCES ENGINEER Oxygen Saturation 96% 11/07/2022 3:21 PM HAZARDOUS SUBSTANCES ENGINEER Inhaled Oxygen Concentration - - Weight 103.4 kg (228 lb) 11/07/2022 3:21 PM HAZARDOUS SUBSTANCES ENGINEER Height 177.8 cm (5' 10) 11/07/2022 3:21 PM HAZARDOUS SUBSTANCES ENGINEER Body Mass Index 32.71 11/07/2022 3:21 PM HAZARDOUS SUBSTANCES ENGINEER Plan of Treatment Health Maintenance Due Date Last Done Comments Colon Cancer Screening-Colonoscopy 1975 Depression Screening 1975 Hepatitis C Screening 1975 Prostate Cancer Screening-PSA 1975 DTaP/Tdap/Td Vaccine (1 - Tdap) 1986 Hepatitis B Screening 1993 Regular Well Visit/Exam 18-64 1993 Zoster Vaccine (1 of 2) 2025 Covid-19 Vaccine (2 - 2024-2 6 season) 2025 01/25/2021 Influenza Vaccine (#1) 2025 Pneumococcal vaccine <65 Aged Out No longer eligible based on patient's age to complete this topic Insurance Jour[employer]Me Jour[employer]Me [facility] CLAIMS Care Teams Insulation Worker Apprentice Relationship Specialty Start Date End Date Sony Marcus PA PCP - General Physician Swine Genetics Researcher 01/20/21
== END 2025-08-06 11:07 | disposition home or self-care (01) ==
LOC: ANHCARD 11:06
PROVIDERS: PCP Family Medicine; Visit Provider Internal Medicine Cardiovascular Disease
DX: R07.9 Chest pain, unspecified (principal)
CPT/HCPCS: 93017